=== PATIENT | female | born 1960 ===

== ENCOUNTER 2017-04-30 13:47 | Emergency (ER) | payer BC ==
[2017-04-30 13:47] VITALS: BMI 29.9
[2017-04-30 14:36] VITALS: BP 103/63; PULSE 68; RESP 16; TEMP 98.6; O2SAT 100
--- NOTE | 2017-04-30 16:44 | ED PDOC ---
HPI: Abdomen Time Seen by Provider: 04/30/17 16:07 Chief Complaint (Nursing): Abdominal Pain Chief Complaint (Provider): Constipation History Per: Patient Onset/Duration Of Symptoms: Days (x3) Current Symptoms Are (Timing): Still Present Additional Complaint(s): 56 year old female with a history of mild constipation presents to the emergency room complaining of constipation ongoing for 3 days. Reports one episode of vomiting and severe abdominal pain this morning. Patient feels as though she constantly has to go to the bathroom but cannot push anything out. States she has never taken any medications. Also complains of difficulty urinating. Denies any fever, dysuria, hematuria, frequency, or vaginal bleeding. PMD: Dr. Charles Osborn ([facility]) Past Medical History Reviewed: Historical Data, Nursing Documentation, Vital Signs Vital Signs: Last Vital Signs Temp 98.6 F 04/30/17 14:34 Pulse 68 04/30/17 14:34 Resp 16 04/30/17 14:34 BP 103/63 04/30/17 14:34 Pulse Ox 100 04/30/17 19:43 - Medical History PMH: Diabetes, Gastritis, Gall Bladder Disease, Hyperlipidemia, Hypothyroidism Denies: Arthritis, Asthma, Atrial Fibrillation, CHF, COPD, HTN, Hypercholesterolemia, Chronic Kidney Disease, Seizures - Surgical History Surgical History: Cholecystectomy, Endoscopy Denies: CABG, Pacemaker - Family History Family History: States: Diabetes Denies: CAD - Social History Current smoker - smoking cessation education provided: No Alcohol: None Drugs: Denies - Home Medications Home Medications: Ambulatory Orders Medication Instructions Recorded Atorvastatin [Lipitor] 40 mg PO HS 10/16/15 Cholecalciferol (Vitamin D3) 2,000 unit PO DAILY 10/16/15 [Vitamin D3] Famotidine [Heartburn Prevention] 20 mg PO BID 10/16/15 Levothyroxine [Synthroid] 75 mcg PO DAILY 10/16/15 Metformin HCl 850 mg PO BID 10/16/15 Aspirin [Aspirin EC] 81 mg PO DAILY 10/21/15 Isosorbide Mononitrate [Isosorbide 30 mg PO DAILY 10/21/15 Mononitrate ER] Lisinopril 2.5 mg PO DAILY 10/21/15 Polyethylene Glycol 3350 [Miralax] 17 gm PO DAILY PRN #1 bottle 04/30/17 - Allergies Allergies/Adverse Reactions: Allergies Allergy/AdvReac Type Severity Reaction Status Date / Time Penicillins Allergy RASH Verified 04/30/17 14:28 Review of Systems ROS Statement: Except As Marked, All Systems Reviewed And Found Negative Constitutional: Negative for: Fever Gastrointestinal: Positive for: Vomiting, Abdominal Pain, Constipation. Negative for: Hematemesis Genitourinary Female: Negative for: Dysuria, Hematuria, Vaginal Bleeding, Other (frequency) Physical Exam - Reviewed Nursing Documentation Reviewed: Yes Vital Signs Reviewed: Yes - Physical Exam Appears: Positive for: Uncomfortable, In Acute Distress Head Exam: Positive for: ATRAUMATIC, NORMOCEPHALIC Skin: Positive for: Warm, Dry Neck: Positive for: Painless ROM, Supple Cardiovascular/Chest: Positive for: Regular Rate, Rhythm. Negative for: Murmur Respiratory: Positive for: Normal Breath Sounds. Negative for: Respiratory Distress Gastrointestinal/Abdominal: Positive for: Soft, Tenderness (diffuse). Negative for: Mass, Distended, Guarding, Hernia Back: Positive for: Normal Inspection. Negative for: L CVA Tenderness, R CVA Tenderness Rectal: Positive for: Rectal Tone Is: (normal), Tenderness, Other (rectal stool impaction). Negative for: Black Stool, Blood Streaked Stool, Hemorrhoids Neurologic/Psych: Positive for: Alert, Mood/Affect (anxious). Negative for: Motor/Sensory Deficits - ECG O2 Sat by Pulse Oximetry: 100 (RA) Pulse Ox Interpretation: Normal Medical Decision Making Medical Decision Making: Initial Impression: Constipation Time: 16:30 Initial Plan: --Obstructive Series --Fleet Enema 135 mL PA Once Digital rectal exam demonstrated stool impaction. A small amount of non-bloody stool was removed through the rectum manually. Accession No. : [id number] Patient Name / ID : ENMANUEL BAUTISTA / [id number] Exam Date : 04/30/2017 16:48:15 ( Approved ) Study Comment : Sex / Age : F / 56Y Creator : Bar Mantilla MD Dictator : Graphic Design Specialist : Financial Recording Clerk : Bar Mantilla MD Approver2 : Report Date : 04/30/2017 17:37:20 My Comment : PROCEDURE: Radiographs of the chest and abdomen (obstructive series) HISTORY: Abdominal pain. Constipation. COMPARISON: No prior. TECHNIQUE: AP radiograph of the chest, with upright and supine radiographs of the abdomen. FINDINGS: CHEST: Lungs: No focal consolidation. There are a few tiny calcified granulomata seen in the left lateral lower lung field. . Cardiovascular: Normal size heart. No pulmonary vascular congestion. Pleura: No pleural fluid. No pneumothorax. Other findings: None. ABDOMEN AND PELVIS: Bowel: Large amount of stool throughout most of the colon consistent with this patient's history of constipation. . Free air: None. Bones: Unremarkable. Other findings: None. IMPRESSION: No acute infiltrates. There are at least 2 tiny granulomata left lateral lower lung field consistent with prior exposure to granulomatous disease process. Findings consistent with constipation. No evidence of acute mechanical bowel obstruction. 730p Pt had large BM in ER. Feels better Scribe Attestation: Documented by Dionne Choi, acting as a scribe for Unique Malcolm MD Provider Scribe Attestation: All medical record entries made by the Scribe were at my direction and personally dictated by me. I have reviewed the chart and agree that the record accurately reflects my personal performance of the history, physical exam, medical decision making, and the department course for this patient. I have also personally directed, reviewed, and agree with the discharge instructions and disposition Disposition - Clinical Impression Clinical Impression: Constipation Counseled Patient/Family Regarding: Studies Performed, Diagnosis, Need For Followup, Rx Given - Disposition [facility]errals: [facility] [Outside] Disposition: Routine/Home Disposition Time: 19:30 Condition: IMPROVED Prescriptions: Polyethylene Glycol 3350 [Miralax] 17 gm PO DAILY PRN #1 bottle PRN Reason: Constipation Instructions: Constipation (ED) Print Language: NORWEGI[place]
--- NOTE | 2017-04-30 17:38 | RAD ---
PROCEDURE: Radiographs of the chest and abdomen (obstructive series) HISTORY: Abdominal pain. Constipation. COMPARISON: No prior. TECHNIQUE: AP radiograph of the chest, with upright and supine radiographs of the abdomen. FINDINGS: CHEST: Lungs: No focal consolidation. There are a few tiny calcified granulomata seen in the left lateral lower lung field. . Cardiovascular: Normal size heart. No pulmonary vascular congestion. Pleura: No pleural fluid. No pneumothorax. Other findings: None. ABDOMEN AND PELVIS: Bowel: Large amount of stool throughout most of the colon consistent with this patient's history of constipation. . Free air: None. Bones: Unremarkable. Other findings: None. IMPRESSION: No acute infiltrates. There are at least 2 tiny granulomata left lateral lower lung field consistent with prior exposure to granulomatous disease process. Findings consistent with constipation. No evidence of acute mechanical bowel obstruction.
== END 2017-04-30 20:15 | disposition home or self-care (01) ==
LOC: H.ER 13:47
DX: K59.00 Constipation, unspecified (principal); E03.9 Hypothyroidism, unspecified; E11.9 Type 2 diabetes mellitus without complications; E78.5 Hyperlipidemia, unspecified; Z79.82 Long term (current) use of aspirin; Z88.0 Allergy status to penicillin